=== PATIENT | female | born 1975 | race Caucasian/White ===

== ENCOUNTER 2017-02-16 12:11 | Emergency (ER) | payer SELFPAY ==
[2017-02-16 14:01] VITALS: BP 147/76
--- NOTE | 2017-02-16 14:31 | RAD ---
INDICATION: Left thumb injury. TECHNIQUE: 4 views of the left thumb were obtained. FINDINGS: The bones are in normal alignment. No fracture is seen. Joint spaces appear maintained. IMPRESSION: NO EVIDENCE FOR FRACTURE.
--- NOTE | 2017-02-16 15:40 | UC ---
Upper Extremity HPI - HPI Summary HPI Summary: PATIENT ARRIVES TO WITH CC OF L THUMB INJURY AFTER "JAMMING" IT ON A TABLE. SHE STATES THE THUMB DID NOT BEND BACK OR FORWARD, BUT MERELY WAS JAMMED BACKWARDS INTO HER WRIST. DENIES WRIST OR ELBOW PAIN. DENIES NUMBNESS OR TINGLING, PALLOR OR DECREASED PULSES. THE THUMB HAS GOOD BLOOD FLOW AND PULSES +2 BILATERALLY. DENIES OTHER INJURIES AND OTHERWISE HEALTHY. - History of Current Complaint Chief Complaint: UCUpperExtremity Stated Complaint: THUMB INJURY Time Seen by Provider: 02/16/17 14:03 Hx Obtained From: Patient Hx Last Menstrual Period: 2 WEEKS AGO ?: No Onset/Duration: Sudden Onset Severity Initially: Moderate Severity Currently: Moderate Pain Intensity: 4 Pain Scale Used: 0-10 Numeric Location Of Pain: Is Discrete @ - LEFT BASE OF THUMB Character: Aching Aggravating Factor(s): Flexion, Extension, Internal/External Rotation Alleviating Factor(s): Nothing Related History: Dominant Hand Right - Risk Factors Non-Orthopedic Risk Factor: Negative DVT Risk Factors: Negative Septic Arthritis Risk Factor: Negative - Allergies/Home Medications Allergies/Adverse Reactions: Allergies Allergy/AdvReac Type Severity Reaction Status Date / Time Oxycodone [From Percocet] Allergy Severe Hives Verified 02/16/17 13:55 Penicillins Allergy Severe Hives Verified 02/16/17 13:55 WASP AND BEE STINGS Allergy Intermediate Swelling Uncoded 02/16/17 13:55 Home Medications: Home Medications LevoCETirizine TAB (NF) [Xyzal TAB (NF)] 1 tab PO BEDTIME 02/16/17 [History Confirmed 02/16/17] PMH/Surg Hx/FS Hx/Imm Hx Previously Healthy: Yes Endocrine History Of: Denies: Diabetes, Thyroid Disease, Hyperthyroidism, Hypothyroidism, Dyslipidemia Cardiovascular History Of: Denies: Cardiac Disorders, Hypertension, Pacemaker/ICD, Myocardial Infarction , Congestive Heart Failure, Atrial Fibrillation, Deep Vein Thrombosis, Bleeding Disorders Respiratory History Of: Reports: Asthma - A CHILD Denies: COPD, Bronchitis, Pneumonia, Pulmonary Embolism GI/ History Of: Denies: Gastroesophageal Reflux, Ulcer, Gastrointestinal Bleed, Gall Bladder Disease, Kidney Stones, Diverticulitis, Renal Disease, Urosepsis Neurological History Of: Denies: TIA, CVA, Dementia, Seizures, Migraine Psychological History Of: Denies: Anxiety, Depression, Bipolar Disorder, Schizophrenia, Post Traumatic Stress Disorder Cancer History Of: Denies: Lung Cancer, Colorectal Cancer, Breast Cancer, Prostate Cancer, Cervical Cancer - Surgical History Surgical History: Yes Surgery Procedure, Year, and Place: TUBES IN EARS A CHILD. UMBILICAL HERNIA REPAIR - Family History Known Family History: Positive: Cardiac Disease, Hypertension - Social History Occupation: Employed Full-time Lives: With Family Alcohol Use: None Substance Use Type: None Smoking Status (MU): Never Smoked Tobacco - Immunization History Most Recent Influenza Vaccination: not needed Most Recent Tetanus Shot: not needed Review of Systems Constitutional: Negative Respiratory: Negative Cardiovascular: Negative Motor: Decreased ROM - D/T PAIN - FLEXION AND EXTENSION OF LEFT THUMB POSSIBLE, BUT LIMITED TO PAIN Neurovascular: Negative Musculoskeletal: Arthralgia Neurological: Negative Psychological: Negative All Other Systems Reviewed And Are Negative: Yes Physical Exam Triage Information Reviewed: Yes Appearance: Well-Appearing, No Pain Distress, Well-Nourished Vital Signs: Initial Vital Signs Temp 99.0 F 02/16/17 13:58 Pulse 87 02/16/17 13:58 Resp 16 02/16/17 13:58 BP 147/76 02/16/17 13:58 Pulse Ox 100 02/16/17 13:58 Vital Signs Reviewed: Yes Eye Exam: Normal Eyes: Positive: Conjunctiva Clear Neck exam: Normal Neck: Positive: Supple, No Lymphadenopathy Respiratory Exam: Normal Respiratory: Positive: Chest non-tender Cardiovascular Exam: Normal Cardiovascular: Positive: RRR Abdominal Exam: Normal Abdomen Description: Positive: Nontender Neurological: Positive: Alert Psychological: Positive: Normal Response To Family, Age Appropriate Behavior Upper Extremity Course/Dx - Course Course Of Treatment: XRAY NEGATIVE FOR FRACTURE. PATIENT WAS PLACED IN THUMB SPICA FOR COMFORT. ENCOURAGED FOLLOW UP IF SYMPTOMS PERSIST OR WORSEN. WARNING GIVEN FOR RETURN PRECAUTIONS SUCH PALLOR, PULSELESSNESS OR DECREASED SENSATION - TO RETURN IMMEDIATELY. PATIENT AGREES AND WILL CONTINUE WITH THUMB SPLICA FOR COMFORT. - Differential Dx/Diagnosis Differential Diagnosis/HQI/PQRI: Contusion, Strain, Sprain Provider Diagnoses: THUMB STRAIN Discharge - Discharge Plan Condition: Stable Disposition: HOME Patient Education Materials: Finger Sprain (ED) Referrals: lEiud Gonzales MD [Primary Care Provider] - Additional Instructions: ICE AND ELEVATION IBUPROFEN 600MG THREE TIMES DAILY NEEDED FOR PAIN USE BRACE FOR YOUR COMFORT FOLLOW UP IF SYMPTOMS BECOME WORSE IF YOU NOTICE PALENESS, DECREASED SENSATION - COME BACK TO UC OR GO TO ED IMMEDIATELY. Images Hands: 1 - PAIN/ACHY
== END 2017-02-16 15:05 | disposition home or self-care (01) ==
LOC: UCEAST 12:11
DX: S63.602A Unspecified sprain of left thumb, initial encounter (principal); W22.09XA Striking against other stationary object, initial encounter; Y93.9 Activity, unspecified; Y99.9 Unspecified external cause status; Z88.5 Allergy status to narcotic agent; Z88.0 Allergy status to penicillin
CPT/HCPCS: 99212; G0463

== ENCOUNTER 2018-01-22 07:53 | Emergency (ER) | payer OTHER ==
[2018-01-22 08:09] VITALS: BP 129/71
--- NOTE | 2018-01-22 11:24 | UC ---
Carlos Steiner Elizabeth, scribed for Stephanie Engel DO on 01/22/18 at 0825 . Respiratory Complaint HPI - HPI Summary HPI Summary: The patient is a 42 year old female complaining of sore throat and fever that began 7 days ago. She report that her sx began with a relatively mild uri with fever that seemed to get better after a day. Then in the past 3 days, sx have gotten much worse. The patient complains of congestion, earache, body aches, and pressure in her head as well as continued fever and st.. The patient denies n/v/d/abd pain, rash or dysuria. Patient notes she recently had exposure to strep throat. - History of Current Complaint Chief Complaint: UCRespiratory Stated Complaint: URI Time Seen by Provider: 01/22/18 08:08 Hx Obtained From: Patient Hx Last Menstrual Period: 01/14/18 Onset/Duration: Lasting Weeks, Still Present Severity Initially: Mild Severity Currently: Mild Pain Intensity: 4 Pain Scale Used: 0-10 Numeric Associated Signs And Symptoms: Positive: Fever, Nasal Congestion, Sinus Discomfort - Allergies/Home Medications Allergies/Adverse Reactions: Allergies Allergy/AdvReac Type Severity Reaction Status Date / Time acetaminophen [From Percocet] Allergy Hives Verified 01/22/18 08:09 oxycodone [From Percocet] Allergy Hives Verified 01/22/18 08:09 Penicillins Allergy Hives Verified 01/22/18 08:10 wasps and bees Allergy Severe Swelling Uncoded 01/22/18 08:10 WASP AND BEE STINGS Allergy Intermediate Swelling Uncoded 02/16/17 13:55 Home Medications: Home Medications Phenylephrine/Dm/Acetaminop/GG [Sudafed PE Pressure+Pain+Cold] 01/22/18 [ History] PMH/Surg Hx/FS Hx/Imm Hx Previously Healthy: Yes Respiratory History: Other - Allergies Other Respiratory History: Allergies - Surgical History Surgical History: Yes Surgery Procedure, Year, and Place: TUBES IN EARS A CHILD. UMBILICAL HERNIA REPAIR x 2 - Family History Known Family History: Positive: Cardiac Disease, Hypertension, Diabetes - Social History Alcohol Use: Occasionally Substance Use Type: None Smoking Status (MU): Never Smoked Tobacco - Immunization History Most Recent Influenza Vaccination: not needed Most Recent Tetanus Shot: not needed Review of Systems Constitutional: Fever, Fatigue Skin: Negative - NEGATIVE RASH ENT: Ear Ache, Sinus Congestion Respiratory: Cough Genitourinary: Negative - NEGATIVE DYSURIA All Other Systems Reviewed And Are Negative: Yes Physical Exam - Summary Physical Exam Summary: Appearance: Well-Appearing, No Pain Distress, Well-Nourished Eyes: conjunctiva clear, no discharge Neck: Supple, positve tender LAD Respiratory/Lung Sounds: Lungs clear, Normal breath sounds, No respiratory distress, No accessory muscle use Cardiovascular: RRR, No murmur Musculoskeletal: Normal Neurological: Alert, muscle tone normal Psychiatric:Normal, age appropriate behavior Skin: Normal, Warm, Dry, Normal color Triage Information Reviewed: Yes Vital Signs: Initial Vital Signs Temp 98.2 F 01/22/18 08:00 Pulse 98 01/22/18 08:00 Resp 16 01/22/18 08:00 BP 129/71 01/22/18 08:00 Pulse Ox 99 01/22/18 08:00 Vital Signs Reviewed: Yes ENT: Positive: Hearing grossly normal, Nasal congestion, Nasal drainage, TMs normal, Tonsillar swelling, Tonsillar exudate, Sinus tenderness, Uvula midline. Negative: Trismus, Muffled voice, Hoarse voice UC Diagnostic Evaluation - Laboratory O2 Sat by Pulse Oximetry: 99 Respiratory Course/Dx - Differential Dx/Diagnosis Provider Diagnoses: sinusitis, pharyngitis Discharge - Discharge Plan Condition: Stable Disposition: HOME Prescriptions: DOXYcycline CAP(*) [DOXYcycline 100MG CAP(*)] 100 mg PO BID #14 cap guaiFENesin ER TAB [Mucinex*] 600 mg PO BID PRN #1 box PRN Reason: Cough Magic Mouth Was-EDMUNDO/MAAL/LIDO* 5 ml SWISH SPIT QID PRN #100 ml PRN Reason: Pain Patient Education Materials: Pharyngitis (ED), Sinusitis (ED) Referrals: Roma Ochoa MD [Primary Care Provider] - If Needed Additional Instructions: TRY USING THE NETTI POT IN THE MORNINGS DISCUSSED. YOU MUST ALWAYS USE CLEAN WATER. REMEMBER, POSTURE IS AN IMPORTANT FACTOR IN SINUS DRAINAGE. MOVE YOUR NECK, BREATHE. EXPECTORANT MEDICATION: WE SENT IN A SCRIPT FOR MUCINEX SO THAT IT IS EASIER FOR YOU TO PICK THE RIGHT MED AT THE PHARMACY. HOWEVER, YOU CAN ALSO GO TO THE [employer] FOOD STORE AND BUY PLAIN GUAIFENESIN WITHOU BINDERS OR FILLERS. An expectorant medicine has been prescribed. This type of drug makes mucous thinner, helping the sinuses, nose, and bronchial tubes to remain free of pus and mucous. Expectorants make a cough less severe and more comfortable, and help infected sinuses drain. In general, antihistamines defeat the purpose of the expectorant by making mucous thicker. They should be avoided unless specifically recommended by your physician. ANTIBIOTICS ARE NOT CURRENTLY INDICATED FOR YOUR CONDITION. hOWEVER, IF YOUR SYMPTOMS WORSEN OR PERSIST FOR OVER THE NEXT 4-7 DAYS, YOU CAN TAKE THE FOLLOWING MEDICATION: DOXYCYCLINE: Doxycycline (Vibramycin, Doryx) is an antibiotic of the tetracycline family. This type of drug is useful for infections of the respiratory tract and genital tract, and is sometimes used for intestinal infections. Unlike most tetracyclines, doxycycline can be taken with food. It is longer acting, and (usually) less prone to side effects than regular tetracycline. Tetracycline antibiotics can stain immature teeth and SHOULD NOT BE TAKEN BY CHILDREN, NURSING MOTHERS, OR WOMEN. Tetracyclines can make you more prone to sunburn. Abdominal cramping, nausea, and diarrhea are occasional side effects. Women may experience vaginal yeast infections. Call the doctor at once if you develop hives, itching, shortness of breath , or lightheadedness. DISCUSSED, DOXY ALSO INCREASES YOUR RISK OF SUNBURN. COVER UP WHEN YOU GO OUTSIDE. ANYTIME YOU TAKE AN ANTIBIOTIC, IT IS IMPORTANT TO REPLENISH THE BODY'S SUPPLY OF "GOOD BACTERIA." YOU CAN GET GOOD BACTERIA FROM HIGH QUALITY CULTURED FOODS SUCH LOCAL YOGURT, SOUR KRAUT, DANIELLE RAZIA, NATURALLY FERMENTED PICKLES AND PROBIOTIC DRINKS. YOU CAN ALSO GET GOOD BACTERIA FROM A PROBIOTIC SUPPLEMENT. The documentation as recorded by the Carlos rollins Elizabeth accurately reflects the service I personally performed and the decisions made by me, Stephanie Engel DO.
== END 2018-01-22 09:24 | disposition home or self-care (01) ==
LOC: UCEAST 07:53
DX: J32.9 Chronic sinusitis, unspecified (principal); J02.9 Acute pharyngitis, unspecified; R50.9 Fever, unspecified; R53.83 Other fatigue; H92.09 Otalgia, unspecified ear; Z88.5 Allergy status to narcotic agent; Z88.0 Allergy status to penicillin; Z88.6 Allergy status to analgesic agent; Z91.030 Bee allergy status
CPT/HCPCS: 87651; 99211; G0463

== ENCOUNTER 2018-07-06 11:41 | Emergency (ER) | payer OTHER ==
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
[2018-07-06 12:38] LABS: Hematocrit 36 % (35-47); Hemoglobin 11.6 g/dl (12.0-16.0); Mean Corpuscular HGB Conc 33 g/dl (31-36); Mean Corpuscular Hemoglobin 24 pg (27-31); Mean Corpuscular Volume 74 fL (80-97); Mean Platelet Volume 7.2 um3 (7.4-10.4); Platelet Count 288 10^3/ul (150-450); Red Blood Count 4.83 10^6/ul (4.00-5.40); Red Cell Distribution Width 16 % (10.5-15); White Blood Count 5.6 10^3/ul (3.5-10.8)
[2018-07-06 12:59] LABS: EGFR Non-African American 100.8 (>60)
[2018-07-06] MEDS ORDERED: Iohexol 350* (CONTRAST) 500 ML MDV IV ONE (13:15)
[2018-07-06 13:26] LABS: ABS Basophils 0 10^3/ul (0-0.2); ABS Eosinophils 0 10^3/ul (0-0.6); ABS Lymphocytes 1.3 10^3/ul (1.0-4.8); ABS Monocytes 0.4 10^3/ul (0-0.8); ABS Neutrophils 3.9 10^3/ul (1.5-7.7); ABS Nucleated RBC 0 10^3/ul; Eosinophil % 0.6 % (0-6); Nucleated Red Blood Cells % 0.1
--- NOTE | 2018-07-06 14:06 | RAD ---
HISTORY: persistent headaches, facial numbness COMPARISONS: Head CT dated December 13, 2017 TECHNIQUE: Multiple contiguous axial CT scans were obtained of the head, before and after, and of the neck after the administration of nonionic intravenous contrast timed to the systemic arterial phase of contrast enhancement. Coronal and sagittal multiplanar reformations are submitted for review. Multiple 3-D maximum intensity projection reconstructions are also submitted for review. FINDINGS: CTA NECK: AORTIC ARCH: There is a normal three-vessel branching pattern of the aortic arch. There is no ostial or proximal stenosis of the cephalic great vessels. RIGHT VERTEBRAL ARTERY: The right vertebral artery is patent along its course, without stenosis. LEFT VERTEBRAL ARTERY: The left vertebral artery is patent along its course, without stenosis. DOMINANCE: The vertebral arteries are codominant. RIGHT COMMON CAROTID ARTERY: The right common carotid artery is patent. The right carotid bifurcation occurs at C3-C4 RIGHT INTERNAL CAROTID ARTERY: There is no right internal carotid artery stenosis by NASCET criteria. RIGHT EXTERNAL CAROTID ARTERY: The right external carotid artery is unremarkable. LEFT COMMON CAROTID ARTERY: The left common carotid artery is patent. The left carotid bifurcation occurs at C3-C4 LEFT INTERNAL CAROTID ARTERY: There is no left internal carotid artery stenosis by NASCET criteria. LEFT EXTERNAL CAROTID ARTERY: The left external carotid artery is unremarkable. VENOUS CIRCULATION: The venous system is unremarkable. SALIVARY GLANDS: The parotid glands, submandibular glands, sublingual glands are normal. NASAL CAVITY/NASOPHARYNX: The nasal cavity and nasopharynx are normal. ORAL CAVITY/OROPHARYNX: The oral cavity is obscured by streak artifact from dental amalgam. The visualized oral cavity and oropharynx are unremarkable. LARYNGEAL APPARATUS/HYPOPHARYNX: The laryngeal apparatus and hypopharynx are normal. UPPER AIRWAY/UPPER ESOPHAGUS: The visualized upper airway and esophagus are normal. LUNG APICES: The lung apices are clear. THYROID GLAND: The thyroid gland is normal. LYMPH NODES: There is no lymphadenopathy by size criteria. BONES AND SOFT TISSUES: No bone or soft tissue abnormalities are noted. CTA HEAD: INTRACRANIAL CIRCULATION: There is no aneurysm, vascular malformation, occlusion, or stenosis of the visualized intracranial circulation. The anterior communicating artery complex is clear. The anterior communicating artery complex is dominant over the A1 segment of the right anterior cerebral artery. This is a normal variant.. There is a origin of the right posterior cerebral artery. VENOUS CIRCULATION: The venous system is unremarkable. PERFUSION: There is no obvious parenchymal perfusion deficit. HEMORRHAGE/INFARCT: There is no hemorrhage or acute infarct. MASSES/SHIFT: There is no mass or shift. EXTRA-AXIAL SPACES: There are no extra-axial fluid collections. SULCI AND VENTRICLES: The sulci and ventricles are normal in size and position for the patient's stated age. CEREBRUM: There are no focal parenchymal abnormalities. BRAINSTEM: There are no focal parenchymal abnormalities. CEREBELLUM: There are no focal parenchymal abnormalities. PARANASAL SINUSES: There is a mucous retention cyst versus polypoid mucosal thickening of the right maxillary sinus. ORBITS: The orbits are unremarkable. BONES AND SOFT TISSUE: No bone or soft tissue abnormalities are noted. OTHER: There is no abnormal enhancement. IMPRESSION: 1. NO INTERNAL CAROTID ARTERY STENOSIS BY NASCET CRITERIA. 2. NO ANEURYSM, VASCULAR MALFORMATION, OCCLUSION, OR STENOSIS OF THE VISUALIZED INTRACRANIAL CIRCULATION. CPT II Codes: 3100F.
[2018-07-06 14:43] VITALS: BP 132/81
== END 2018-07-06 14:43 | disposition home or self-care (01) ==
LOC: ED 11:41
DX: R20.2 Paresthesia of skin (principal); Z88.5 Allergy status to narcotic agent; Z88.0 Allergy status to penicillin; Z88.6 Allergy status to analgesic agent
CPT/HCPCS: 36415; 70496; 70498; 80053; 85025; 99282; Q9967

== ENCOUNTER 2019-08-18 14:53 | Emergency (ER) | payer OTHER ==
[2019-08-18 15:38] VITALS: BP 124/67
--- NOTE | 2019-08-18 15:51 | UC ---
Respiratory Complaint HPI - HPI Summary HPI Summary: 43-year-old female presents with one-week history of nasal congestion, runny nose, and ear fullness. States 2-3 days ago started developing a dry nonproductive cough that has progressively worsened. Last night states she got into a coughing fit and felt short of breath. Reports has had issues with reactive airway disease with upper respiratory infections in the past. States had low-grade fever the first couple of days the symptoms but none recently. Denies sore throat, chest pain, wheezing, abdominal pain, nausea, or vomiting. - History of Current Complaint Chief Complaint: UCRespiratory Stated Complaint: URI SYMPTOMS Time Seen by Provider: 08/18/19 15:31 Hx Obtained From: Patient Hx Last Menstrual Period: today Pain Intensity: 2 - Allergies/Home Medications Allergies/Adverse Reactions: Allergies Allergy/AdvReac Type Severity Reaction Status Date / Time oxycodone [From Percocet] Allergy Hives Verified 08/18/19 15:39 Penicillins Allergy Hives Verified 08/18/19 15:39 wasps and bees Allergy Severe Swelling Uncoded 08/18/19 15:39 WASP AND BEE STINGS Allergy Intermediate Swelling Uncoded 08/18/19 15:39 PMH/Surg Hx/FS Hx/Imm Hx Previously Healthy: Yes - Denies significant PMH GI/ History: Other - Celiac disease - Surgical History Surgical History: Yes Surgery Procedure, Year, and Place: TUBES IN EARS A CHILD. UMBILICAL HERNIA REPAIR x 2 - Family History Known Family History: Positive: Cardiac Disease, Hypertension, Diabetes - Social History Occupation: Employed Full-time Lives: With Family Alcohol Use: Occasionally Substance Use Type: None Smoking Status (MU): Never Smoked Tobacco - Immunization History Most Recent Influenza Vaccination: not needed Most Recent Tetanus Shot: not needed Review of Systems All Other Systems Reviewed And Are Negative: Yes Constitutional: Negative: Fever, Chills Skin: Negative: Rash Eyes: Negative: Drainage, Eye Redness ENT: Positive: Ear Ache, Nasal Discharge, Sinus Congestion. Negative: Sore Throat, Sinus Pain/Tenderness Respiratory: Positive: Shortness Of Breath, Cough Cardiovascular: Negative: Palpitations, Chest Pain Gastrointestinal: Negative: Abdominal Pain, Vomiting, Diarrhea, Nausea Genitourinary: Positive: Negative Musculoskeletal: Positive: Negative Neurological: Positive: Negative Is Patient Immunocompromised?: No Physical Exam - Summary Physical Exam Summary: GENERAL APPEARANCE: Well developed, well nourished, alert and cooperative, and appears to be in no acute distress. EYES: Conjunctiva clear. No drainage. EARS: External auditory canals and tympanic membranes clear, hearing grossly intact. NOSE: Mild nasal congestion. No nasal discharge. THROAT: Mild pharyngeal erythema with post-nasal drip. No tonsilar inflammation , swelling, exudate, or lesions. Uvula midline. NECK: Neck supple, non-tender without lymphadenopathy. CARDIAC: Normal S1 and S2. No S3, S4 or murmurs. Rhythm is regular. There is no peripheral edema, cyanosis or pallor. Extremities are warm and well perfused. Capillary refill is less than 2 seconds. Peripheral pulses intact. LUNGS: Clear to auscultation without rales, rhonchi, wheezing or diminished breath sounds. Dry, non-productive cough. ABDOMEN: Positive bowel sounds. Soft, nondistended, nontender. No guarding or rebound. No masses or hepatosplenomegally. MUSKULOSKELETAL: ROM intact to all extremities. No joint erythema or tenderness. Normal muscular development. Normal gait. SKIN: Skin normal color, texture and turgor with no lesions or eruptions. Triage Information Reviewed: Yes Vital Signs: Initial Vital Signs Temp 98.7 F 08/18/19 15:31 Pulse 100 08/18/19 15:31 Resp 18 08/18/19 15:31 BP 124/67 08/18/19 15:31 Pulse Ox 99 08/18/19 15:31 Vital Signs Reviewed: Yes Respiratory Course/Dx - Course Course Of Treatment: 43-year-old female presents with one-week history of nasal congestion, runny nose, and ear fullness. States 2-3 days ago started developing a dry nonproductive cough that has progressively worsened. Last night states she got into a coughing fit and felt short of breath. Reports has had issues with reactive airway disease with upper respiratory infections in the past. States had low-grade fever the first couple of days the symptoms but none recently. Has been doing saline rinses twice daily and taking [id number] Sudafed with some relief in symptoms. Denies sore throat, chest pain, wheezing, abdominal pain, nausea, or vomiting. Afebrile. Vital signs stable. Patient had mild nasal congestion, mild fever and chill erythema with postnasal drip, no tonsillar swelling or exudate, no cervical lymphadenopathy, clear bilateral breath sounds, dry nonproductive cough, and otherwise unremarkable exam. Discussed with patient that her symptoms were likely a viral upper respiratory infection and that her cough is suggestive of some postnasal drip and possible reactive airway disease. Recommending continued symptomatic treatment with the addition of fluticasone nasal spray 2 sprays each nostril once daily, Tessalon Perles 1 capsule every 8 hours as needed for cough, and albuterol inhaler 2 puffs every 4-6 hours as needed for shortness of breath or wheezing. She is to follow-up with her primary care provider in 3-5 days especially if symptoms are not improving. Anticipatory guidance and warning symptoms. The patient. Verbalizes understanding and agrees with plan of care. - Differential Dx/Diagnosis Differential Diagnosis/HQI/PQRI: Bronchitis, Lower Resp Infection, Other - URI Provider Diagnosis: Upper respiratory infection with cough and congestion Discharge ED - Sign-Out/Discharge Documenting (check all that apply): Patient Departure All imaging exams completed and their final reports reviewed: No Studies - Discharge Plan Condition: Stable Disposition: HOME Prescriptions: Albuterol HFA INHALER* [Ventolin HFA Inhaler*] 2 puff INH Q4H PRN #1 mdi PRN Reason: Sob/Wheezing Benzonatate CAP* [Tessalon 100 MG CAP*] 100 mg PO TID PRN #21 cap PRN Reason: Cough Patient Education Materials: Upper Respiratory Infection (ED) Referrals: Eliud Gonzales MD [Primary Care Provider] - Additional Instructions: Your history and exam are consistent with a viral upper respiratory infection. Viral infections do not respond to antibiotics and are limited to the treatment of symptoms. Viral infections typically run their course in 7-10 days. Drink plenty of fluids to avoid dehydration especially if you are running any fever. Use a saline rinse kit such as Neti Pot or NeilMed at least twice a day to help thin secretions and promote drainage of the sinuses. Use fluticasone (Flonase) nasal spray 2 sprays each nostril once daily. Continue taking Sudafed according to directions for the nasal congestion. Use albuterol inhaler 2 puffs every 4-6 hours as needed for shortness of breath , wheezing, or coughing fit. Take Tessalon Perles 1 capsule every 8 hours as needed for cough. Take over the counter acetaminophen (Tylenol) or ibuprofen (Advil, Motrin) according to directions as needed for pain or fever. Use salt water gargles several times a day if you have a sore throat. You may also use Chloraseptic spray or Cepacol lonzenges according to directions which contain a numbing medication and can provide some temporary relief from your sore throat. Follow up with your primary care provider in 3-5 days if symptoms persist. Seek immediate medical attention in the emergency room if you have fever greater than 100.5 F despite taking acetaminophen or ibuprofen, have chest pain , difficulty breathing, are unable to swallow, or have any worsening of symptoms. - Billing Disposition and Condition Condition: STABLE Disposition: Home
== END 2019-08-18 16:25 | disposition home or self-care (01) ==
LOC: UCEAST 14:53
DX: J06.9 Acute upper respiratory infection, unspecified (principal); R05 Cough; R09.81 Nasal congestion; Z88.5 Allergy status to narcotic agent; Z88.0 Allergy status to penicillin; Z91.030 Bee allergy status
CPT/HCPCS: 99211; G0463